=== PATIENT | male | born 1960 | race Caucasian/White ===

== ENCOUNTER 2021-09-15 06:05 | Inpatient (IN) ==
[2021-09-15] MEDS ORDERED: Isovue-370 500 ML BOTTLE IVP ONE ×2 (06:18→06:20)
[2021-09-15] MEDS ORDERED: *HR* Heparin 5,000 UNIT/ML VIAL IVP ONE (07:02)
[2021-09-15] MEDS ORDERED: *HR* Heparin 5,000 UNIT/ML VIAL IVP PRN (07:02)
[2021-09-15 07:12] LABS: Bilirubin,Urine Negative (Negative); Blood,Urine Negative (Negative); Clarity,Urine Clear (Clear); Color,Urine Yellow (Yellow); Glucose,Urine (UA) 70 mg/dL (Normal); Hyaline Casts,Urine Few per lpf (None Seen); Ketones,Urine 10 mg/dL (Negative); Leukocyte Esterase,Urine Negative (Negative); Mucus,Urine Few per lpf (None-Few); Nitrite,Urine Negative (Negative); PH,Urine 6.5 pH Units (5.0-8.0); Protein,Urine 30 mg/dL (Neg-Trace); RBC,Urine 0-3 per hpf (0-3); Specific Gravity,Urine 1.025 (1.010-1.025); Squamous Epithelial Cell,Urine Few per hpf (None-Few); WBC,Urine 0-3 per hpf (0-3)
[2021-09-15] MEDS ORDERED: Heparin 25,000UNIT/250ML 1/2NS 25,000 UNIT/250 ML IV.SOLN IVC SCH (07:15)
[2021-09-15] MEDS: Heparin 25,000UNIT/250ML 1/2NS 25,000 UNIT/250 ML IV.SOLN IVC SCH (07:35)
[2021-09-15 08:10] LABS: Basophils # 0.1 K/mcL (0.0-0.2); Basophils % 0.4 %; Hemoglobin 13.2 g/dL (12.9-16.9); Immature Granulocytes % 0.5 % (0-4); Lymphocytes # 2.1 K/mcL (0.6-4.6); Lymphocytes % 12.9 %; Mean Corpuscular HGB Conc 32.2 g/dL (31.6-35.5); Mean Corpuscular Hemoglobin 29.6 pg (28.0-33.3); Mean Corpuscular Volume 91.9 fL (83.0-100.0); Mean Platelet Volume 10.3 fL (9.4-12.4); Monocytes # 1.3 K/mcL (0.0-1.3); Monocytes % 8.2 %; Neutrophils # 12.7 K/mcL (1.6-8.9); Platelet Count 358 K/mcL (140-400); Red Blood Count 4.46 M/mcL (4.19-5.50); White Blood Count 16.3 K/mcL (4.3-11.1)
[2021-09-15 08:22] LABS: INR 1.4; Prothrombin Time 15.3 Seconds (9.4-12.1)
[2021-09-15 08:24] LABS: Activated Partial Thrombo Time 83.2 Seconds (26.0-36.0)
[2021-09-15 08:30] LABS: Alanine Aminotransferase 17 Units/L (7-52); Albumin/Globulin Ratio 1.1 (1.1-2.2); Alkaline Phosphatase 85 Units/L (34-104); Aspartate Amino Transferase 14 Units/L (13-39); BUN/Creatinine Ratio 30 (6-26); Bilirubin,Total 0.6 mg/dL (0.3-1.0); Blood Urea Nitrogen 18 mg/dL (8-23); Calcium 9.9 mg/dL (8.6-10.3); Carbon Dioxide 27 mEq/L (23-29); Chloride 99 mEq/L (98-107); Globulin 3.7 g/dL (2.4-3.5); Glucose 186 mg/dL (70-105); Osmolality,Calculated 285 (280-300); Potassium 4.2 mEq/L (3.5-5.1); Sodium 134 mEq/L (136-145); Total Protein 7.7 g/dL (6.4-8.9); eGFR For African Americans > 60 (> 60); eGFR For Non-African Americans > 60 (> 60)
[2021-09-15 08:32] LABS: Influenza A PCR Negative (Negative); Influenza B PCR Negative (Negative); Resp. Syncytial Virus PCR Negative (Negative)
[2021-09-15 08:34] LABS: Troponin I 0.04 ng/mL (< 0.04)
[2021-09-15 09:22] LABS: SARS-CoV-2 by PCR (In House) Negative (Negative)
[2021-09-15] MEDS ORDERED: Naloxone 0.4 MG/ML INJ IVP PRN (10:21)
[2021-09-15] MEDS ORDERED: Perflutren Lipid Microsphere 1.3 ML in 0.9 % Sodium Chloride 8.7 ML IVP PRN (11:34)
[2021-09-15] MEDS ORDERED: *HR* Dextrose 50 % in Water (Syg) 50 ML SYRINGE IVP PRN (11:42)
[2021-09-15] MEDS ORDERED: D5% in Water 1,000 ML IVC PRN (11:42)
[2021-09-15] MEDS ORDERED: Dextrose Gel 15 GM/37.5 ML TUBE PO PRN ×2 (11:42)
[2021-09-15] MEDS: Insulin LISPRO 300 UNITS/3 ML VIAL SUBQ SCH ×2 (12:15→17:20)
[2021-09-15] MEDS ORDERED: Gadolinium Contrast Agent (WT Based) IV PRN (12:18)
[2021-09-15] MEDS ORDERED: Acetaminophen 325 MG TABLET PO PRN (18:04)
[2021-09-15 20:13] LABS: Heparin anti-factor XA UFH 0.23 IU/mL (0.30-0.70)
[2021-09-15] MEDS: *HR* Heparin 5,000 UNIT/ML VIAL IVP PRN (22:20)
[2021-09-16] MEDS: Heparin 25,000UNIT/250ML 1/2NS 25,000 UNIT/250 ML IV.SOLN IVC SCH ×2 (04:22→16:54)
[2021-09-16] MEDS: *HR* Heparin 5,000 UNIT/ML VIAL IVP PRN (06:26)
[2021-09-16] MEDS: Insulin LISPRO 300 UNITS/3 ML VIAL SUBQ SCH ×3 (08:43→16:55)
[2021-09-16 14:04] LABS: Basophils # 0.1 K/mcL (0.0-0.2); Basophils % 0.6 %; Hematocrit 42.5 % (37.5-50.1); Hemoglobin 13.8 g/dL (12.9-16.9); Immature Granulocytes % 0.4 % (0-4); Lymphocytes # 2.5 K/mcL (0.6-4.6); Lymphocytes % 23.1 %; Mean Corpuscular HGB Conc 32.5 g/dL (31.6-35.5); Mean Corpuscular Hemoglobin 29.9 pg (28.0-33.3); Mean Corpuscular Volume 92.2 fL (83.0-100.0); Mean Platelet Volume 10.6 fL (9.4-12.4); Monocytes # 0.9 K/mcL (0.0-1.3); Monocytes % 8.2 %; Neutrophils # 7.3 K/mcL (1.6-8.9); Platelet Count 397 K/mcL (140-400); Red Blood Count 4.61 M/mcL (4.19-5.50); Red Cell Distribution Width 14.2 % (11.5-14.5); Segmented Neutrophils % 67.7 %; White Blood Count 10.8 K/mcL (4.3-11.1)
[2021-09-16 14:25] LABS: Alanine Aminotransferase 17 Units/L (7-52); Albumin 4.2 g/dL (3.5-5.7); Alkaline Phosphatase 91 Units/L (34-104); Aspartate Amino Transferase 15 Units/L (13-39); BUN/Creatinine Ratio 21 (6-26); Bilirubin,Total 0.5 mg/dL (0.3-1.0); Blood Urea Nitrogen 13 mg/dL (8-23); Calcium 9.9 mg/dL (8.6-10.3); Carbon Dioxide 28 mEq/L (23-29); Chloride 99 mEq/L (98-107); Globulin 4.4 g/dL (2.4-3.5); Glucose 170 mg/dL (70-105); Osmolality,Calculated 278 (280-300); Sodium 132 mEq/L (136-145); Total Protein 8.6 g/dL (6.4-8.9); eGFR For African Americans > 60 (> 60); eGFR For Non-African Americans > 60 (> 60)
[2021-09-17 02:59] LABS: Basophils # 0.1 K/mcL (0.0-0.2); Basophils % 0.4 %; Eosinophils % 0.1 %; Hematocrit 37.4 % (37.5-50.1); Immature Granulocytes % 0.5 % (0-4); Lymphocytes # 2.8 K/mcL (0.6-4.6); Lymphocytes % 20.7 %; Mean Corpuscular HGB Conc 32.4 g/dL (31.6-35.5); Mean Corpuscular Hemoglobin 29.7 pg (28.0-33.3); Mean Corpuscular Volume 91.7 fL (83.0-100.0); Mean Platelet Volume 10.7 fL (9.4-12.4); Monocytes # 1.4 K/mcL (0.0-1.3); Monocytes % 10.8 %; Platelet Count 350 K/mcL (140-400); Red Blood Count 4.08 M/mcL (4.19-5.50); Red Cell Distribution Width 14.2 % (11.5-14.5); Segmented Neutrophils % 67.5 %; White Blood Count 13.4 K/mcL (4.3-11.1)
[2021-09-17 03:01] LABS: Hemoglobin 12.1 g/dL (12.9-16.9)
[2021-09-17 03:17] LABS: Alanine Aminotransferase 16 Units/L (7-52); Albumin 3.7 g/dL (3.5-5.7); Alkaline Phosphatase 76 Units/L (34-104); Aspartate Amino Transferase 13 Units/L (13-39); BUN/Creatinine Ratio 29 (6-26); Bilirubin,Total 0.5 mg/dL (0.3-1.0); Blood Urea Nitrogen 17 mg/dL (8-23); Calcium 9.4 mg/dL (8.6-10.3); Carbon Dioxide 25 mEq/L (23-29); Chloride 103 mEq/L (98-107); Globulin 3.6 g/dL (2.4-3.5); Glucose 159 mg/dL (70-105); Osmolality,Calculated 281 (280-300); Potassium 3.8 mEq/L (3.5-5.1); Sodium 133 mEq/L (136-145); Total Protein 7.3 g/dL (6.4-8.9); eGFR For African Americans > 60 (> 60); eGFR For Non-African Americans > 60 (> 60)
[2021-09-17] MEDS: Insulin LISPRO 300 UNITS/3 ML VIAL SUBQ SCH ×2 (08:02→12:27)
[2021-09-17] MEDS: Heparin 25,000UNIT/250ML 1/2NS 25,000 UNIT/250 ML IV.SOLN IVC SCH (08:16)
[2021-09-17 14:59] VITALS: BP 133/79; PULSE 82; TEMP 97.9; O2SAT 97
== END 2021-09-17 18:21 | disposition home or self-care (01) | DRG 69 ==
LOC: 3BNU 06:05 → EMEROOARM 06:05 → 3BNU 10:51
PROVIDERS: ADMIT Internal Medicine; ATTEND Internal Medicine

== ENCOUNTER 2022-04-16 06:12 | Observation (INO) ==
[2022-04-16] MEDS ORDERED: Iopamidol - 370 500 ML MLS IVP ONE (07:07)
[2022-04-16 07:11] LABS: Basophils % 0.3 %; Eosinophils % 8.1 %; Hematocrit 40.6 % (37.5-50.1); Hemoglobin 12.9 g/dL (12.9-16.9); Immature Granulocytes % 0.6 % (0-4); Lymphocytes % 24.8 %; Mean Corpuscular HGB Conc 31.8 g/dL (31.6-35.5); Mean Corpuscular Hemoglobin 28.5 pg (28.0-33.3); Mean Corpuscular Volume 89.8 fL (83.0-100.0); Mean Platelet Volume 11.8 fL (9.4-12.4); Monocytes # 1.2 K/mcL (0.0-1.3); Monocytes % 9.7 %; Neutrophils # 6.8 K/mcL (1.6-8.9); Platelet Count 275 K/mcL (140-400); Red Blood Count 4.52 M/mcL (4.19-5.50); Red Cell Distribution Width 18.3 % (11.5-14.5); Segmented Neutrophils % 56.5 %; White Blood Count 12.1 K/mcL (4.3-11.1)
[2022-04-16 07:18] LABS: INR 1.3; Prothrombin Time 14.3 Seconds (9.4-12.1)
[2022-04-16 07:21] LABS: Activated Partial Thrombo Time 49.5 Seconds (26.0-36.0)
[2022-04-16 07:34] LABS: BUN/Creatinine Ratio 28 (6-26); Blood Urea Nitrogen 21 mg/dL (8-23); Calcium 9.4 mg/dL (8.6-10.3); Carbon Dioxide 24 mEq/L (23-29); Chloride 104 mEq/L (98-107); Glucose 167 mg/dL (70-105); Osmolality,Calculated 291 (280-300); Sodium 137 mEq/L (136-145); Troponin I < 0.03 ng/mL (< 0.04)
[2022-04-16 08:12] LABS: Magnesium 1.9 mg/dL (1.6-2.6)
[2022-04-16] MEDS ORDERED: Naloxone 0.4 MG/ML INJ IVP PRN (09:44)
[2022-04-16] MEDS ORDERED: Ondansetron 4 MG/2 ML VIAL IVP PRN (09:52)
[2022-04-16] MEDS ORDERED: Acetaminophen 325 MG TABLET PO PRN (09:52)
[2022-04-16] MEDS ORDERED: Dextrose Gel 15 GM/37.5 ML TUBE PO PRN ×2 (09:58)
[2022-04-16] MEDS ORDERED: *HR* Dextrose 50 % in Water (Syg) 50 ML SYRINGE IVP PRN (09:58)
[2022-04-16] MEDS ORDERED: D5% in Water 1,000 ML IVC PRN (09:58)
[2022-04-16] MEDS ORDERED: Gadolinium Contrast Agent (WT Based) IV PRN (10:02)
[2022-04-16] MEDS ORDERED: GADOBUTROL 30 MMOL/30 ML VIAL IVP ONE (13:42)
[2022-04-16] MEDS: Insulin LISPRO 300 UNITS/3 ML VIAL SUBQ SCH ×2 (14:43→16:53)
[2022-04-16] MEDS: Aspirin Enteric Coated 81 MG Tablet PO SCH (14:45)
[2022-04-16] MEDS: *HR* Dabigatran 150 MG CAPSULE PO SCH (20:46)
[2022-04-16] MEDS ORDERED: Insulin LISPRO 300 UNITS/3 ML VIAL SUBQ SCH (21:00)
[2022-04-17 02:51] LABS: Basophils % 0.3 %; Hematocrit 39.1 % (37.5-50.1); Hemoglobin 12.6 g/dL (12.9-16.9); Immature Granulocytes % 0.2 % (0-4); Lymphocytes # 2.1 K/mcL (0.6-4.6); Lymphocytes % 17.2 %; Mean Corpuscular HGB Conc 32.2 g/dL (31.6-35.5); Mean Corpuscular Hemoglobin 28.3 pg (28.0-33.3); Mean Corpuscular Volume 87.7 fL (83.0-100.0); Mean Platelet Volume 11.7 fL (9.4-12.4); Monocytes # 1.2 K/mcL (0.0-1.3); Monocytes % 9.4 %; Platelet Count 295 K/mcL (140-400); Red Blood Count 4.46 M/mcL (4.19-5.50); Red Cell Distribution Width 17.9 % (11.5-14.5); Segmented Neutrophils % 72.9 %; White Blood Count 12.4 K/mcL (4.3-11.1)
[2022-04-17 02:55] LABS: BUN/Creatinine Ratio 33 (6-26); Blood Urea Nitrogen 19 mg/dL (8-23); Carbon Dioxide 22 mEq/L (23-29); Chloride 107 mEq/L (98-107); Glucose 121 mg/dL (70-105); Magnesium 1.9 mg/dL (1.6-2.6); Osmolality,Calculated 288 (280-300); Potassium 3.9 mEq/L (3.5-5.1); Sodium 137 mEq/L (136-145)
[2022-04-17 04:19] LABS: Estimated Average Glucose 186 mg/dl; Hemoglobin A1C 8.1 %
[2022-04-17] MEDS: Insulin LISPRO 300 UNITS/3 ML VIAL SUBQ SCH ×2 (07:12→11:46)
[2022-04-17] MEDS: Aspirin Enteric Coated 81 MG Tablet PO SCH (07:43)
[2022-04-17] MEDS: *HR* Dabigatran 150 MG CAPSULE PO SCH (07:44)
[2022-04-17] MEDS ORDERED: Ascorbic Acid 500 MG TABLET PO SCH (09:00)
[2022-04-17] MEDS ORDERED: Lactobacillus 1 EACH CAP.SPRINK PO SCH (09:00)
[2022-04-17] MEDS ORDERED: Loratadine 10 MG TABLET PO SCH (09:00)
[2022-04-17] MEDS ORDERED: Multivit/Ca/Min/Fe/FA 1 TAB TABLET PO SCH (09:00)
[2022-04-17] MEDS ORDERED: lisinopriL 5 MG TABLET PO SCH (09:00)
[2022-04-17 10:41] VITALS: BP 139/77; PULSE 67; TEMP 98.3; O2SAT 94
[2022-04-20 10:40] LABS: Serine Protease-3 Antibody 5 AU/mL (0-19)
== END 2022-04-17 12:07 | disposition home or self-care (01) ==
LOC: EMEROOARM 06:12 → 3BNU 06:12 → SUATTDRO 12:25 → 3BNU 13:29
PROVIDERS: ADMIT Pharmacist; ATTEND Internal Medicine